=== PATIENT | male | born 1995 | race Caucasian/White ===

== ENCOUNTER 2020-01-03 16:13 | Emergency (ER) | payer SELFPAY ==
[~2020-01-03] VITALS: Ht 172.7 cm; Wt 63.5 kg
[2020-01-03 16:15] VITALS: BP 135/7
[2020-01-03] MEDS ORDERED: IBUPROFEN 600 MG TAB PO ONE (16:20)
[2020-01-03 16:28] VITALS: BP 135/7
== END 2020-01-03 16:28 | disposition left against medical advice (07) ==
LOC: MED 16:13
DX: S16.1XXA Strain of muscle, fascia and tendon at neck level, initial encounter (principal); M79.641 Pain in right hand; V89.2XXA Person injured in unspecified motor-vehicle accident, traffic, initial encounter; Y93.89 Activity, other specified; Y92.89 Other specified places as the place of occurrence of the external cause; Y99.8 Other external cause status
CPT/HCPCS: 99283